=== PATIENT | male | born 1945 | race Caucasian/White ===

== ENCOUNTER 2018-01-02 05:25 | Day surgery (SDC) | payer OTHER ==
[~2018-01-02] VITALS: Ht 182.9 cm; Wt 112.5 kg
--- NOTE | ~2018-01-02 | P ---
[facility] [place] [address] PROCEDURE REPORT Name: TRAVIS LAY JR Room #: DEP [facility]..#: [id number] Admission: 01/02/18 Attend Phys: Jaguar Kee MD Discharge: 01/02/18 Date of : 47 Report #: [id number] THIS REPORT FOR: //name// CC: OZZY Kee DATE OF SERVICE: 01/02/2018 PROCEDURE: Fiberoptic bronchoscopy and endobronchial ultrasound device under general endotracheal anesthesia with sampling of a 9 mm 11R lymph node and a 1 cm left hilar mass. INDICATION: History of lung cancer with PET positive areas in the left and right hilar areas. ASA classification class 3. PROCEDURE NOTATION: After discussing risks, benefits of planned procedure with the patient, desired to proceed. After obtaining informed consent, he was taken to the OR room #2 by the Anesthesia Service and placed on general endotracheal anesthesia with an 8.[address]. Once complete, the procedure proceeded. Please see anesthesia notes regarding general anesthesia. Of note, no paralytics were needed during the procedure. Once complete, the standard white light bronchoscope was advanced through the endotracheal tube to the distal trachea was seen. Trachea appeared normal. The airways were then surveyed. Mainstem, lobar, segmental and subsegmental bronchi were all patent with no significant anatomic variation. There is some narrowing of some of the airways, but no significant disease noted. Some bronchomalacia noted in the right mainstem bronchus. There were some secretions emanating from the lingula of the left upper lobe and this was lavaged. Samples were sent for microbiologic and cytologic tests. White light bronchoscope was then removed and endobronchial ultrasound device was then inserted. The right-sided structures were evaluated first. A small subcarinal lymph node was noted. A 4R lymph node 9 mm noted, but not sampled. 11R lymph node measured 9 mm, and this was sampled 6 times with a 25-gauge core needle. A 6 mm 4L lymph node was also seen, but not sampled. A left hilar mass measuring 1 cm was also noted and was noted to be abnormal on the PET scan. This was sampled 6 times, twice with the previously used 25-gauge core needle and then four times with a 22-gauge standard needle. Rapid on-site pathology was inconclusive. Core samples of [address] [address] PROCEDURE REPORT Name: TRAVIS LAY Room #: [place] [facility] [place] [id number] Admission: 01/02/18 Attend Phys: Jaguar Kee MD Discharge: 01/02/18 Date of : 47 Report #: [id number] tissue were sent in formalin for histopathology. The patient tolerated well. No noted complications. Minimal bleeding. <ELECTRONICALLY SIGNED> By: Jaguar Kee MD 01/02/18 1613 0932 [id number] Jaguar Kee MD /emmy
[~2018-01-02 05:25] MED LIST: ADALAT CC30 MG PO; ALBUTEROL SULFATE INH; ALDACTONE25 MG PO; AMARYL2 MG PO; APAP500 PO; ASPIR 8181 MG PO; ASPIRIN81 M2 PO; BISACODYL SUPP10 MG RECTAL; BREO ELLIPTA 11 EACH INH; BUMETANIDE2 M1 PO; BUMEX2 MG PO; CENTRUM SILVER1 EAC2 PO; CIPRO500 MG PO; CLONIDINE HCL0.1 MG PO; COLACE100 MG PO; FISH OIL PO; FLAGYL500 MG PO; HYDROCHLOROTH12.5 M1 PO; HYDROCODON-ACE1 EAC8 PO; HYDROCODONE-AP1 EAC6 PO; HYDROCODONE-APA1 TA1 PO; IPRAT-ALBUT 0.5-3 ML IH; KLOR-CON 1010 MEQ PO; LACTINEX CHEWA1 EACH PO; LACTINEX PO; LASIX 40 MG TAB40 M2 PO; LEVAQUIN 250 M250 MG PO; LEVAQUIN 500 M500 M2 PO; LISINOPRIL20 MG PO; MAGIC MOUTHWASH PO; METHOTREXATE 22.5 MG IM; METOPROLOL SUCC25 M1 PO; MIRALAX17 GM PO; MUCINEX TA600 MG/TA2 PO; NEURONTIN 300300 M1 PO; PREDNISONE 10 M10 MG; PREDNISONE 10 M10 MG PO; PROMETHAZINE/C118 ML PO; PROTONIX40 M1 PO; RANITIDINE 150150 MG PO; REMICADE 1100 MG/VIA IV; RESTORIL15 MG PO; SENOKOT-S1 TA1 PO; SPIRIVA INH; TESSALON PERLE100 MG PO; TRAMADOL; TRAMADOL 50 MG50 MG PO; VENTOLIN HFA 1818 GM INH; VITAMIN B-12500 MCG IM; VITAMIN B-12500 MCG PO; VITAMIN D1000 UNI2 PO; VITAMIN D3 PO; ZESTORETIC 10-1 EACH PO; ZOCOR40 MG PO
[2018-01-02 07:27] LABS: HEMOGLOBIN 13.1 gm/dL (14.0-18.0); MCHC 33.7 g/dL (28.0-37.0); MCV 101.2 fL (80.0-100.0); RBC 3.86 mil/uL (4.50-6.00); RDW 14.9 % (10.5-14.5); WBC 10.9 thou/uL (4.0-11.0)
[2018-01-02 07:34] LABS: CALCIUM 9.2 mg/dL (8.5-10.1); CREATININE 0.9 mg/dL (0.7-1.3); POTASSIUM 4.2 mmol/L (3.5-5.1)
[2018-01-02 07:39] LABS: PROTIME 9.5 Seconds (9.3-11.4)
[2018-01-02 08:16] VITALS: BP 158/79
== END 2018-01-02 10:40 | disposition home or self-care (01) ==
LOC: TBA 05:25 → OR 05:25
PROVIDERS: Internal Medicine Pulmonary Disease
DX: J98.09 Other diseases of bronchus, not elsewhere classified (principal); R91.8 Other nonspecific abnormal finding of lung field; I10 Essential (primary) hypertension; I25.2 Old myocardial infarction; E78.5 Hyperlipidemia, unspecified; J43.9 Emphysema, unspecified; G47.33 Obstructive sleep apnea (adult) (pediatric); K21.9 Gastro-esophageal reflux disease without esophagitis; M06.9 Rheumatoid arthritis, unspecified; Z98.890 Other specified postprocedural states; Z98.41 Cataract extraction status, right eye; Z98.42 Cataract extraction status, left eye; Z85.118 Personal history of other malignant neoplasm of bronchus and lung; Z87.891 Personal history of nicotine dependence; Z87.19 Personal history of other diseases of the digestive system; Z88.8 Allergy status to other drugs, medicaments and biological substances; Z79.82 Long term (current) use of aspirin; Z79.899 Other long term (current) drug therapy; Z79.891 Long term (current) use of opiate analgesic
CPT/HCPCS: 62110; 62900; 65130; 70005

== ENCOUNTER 2018-07-08 14:27 | Emergency (ER) | payer OTHER ==
[~2018-07-08] VITALS: Ht 182.9 cm; Wt 112.5 kg
--- NOTE | ~2018-07-08 | EKG ---
[address] [place] [address] ELECTROCARDIOGRAM REPORT Name: TRAVIS LAY JR [id number] Admission: 07/08/18 Attend Phys: Discharge: 07/08/18 Date of : 47 Report #: [id number] THIS REPORT FOR: //name// [facility] ED Test Date: 2018-07-08 Test Time: 14:36:17 Pat Name: TRAVIS LAY Department: Room: Gender: M Cost Specialist: KKODJOVI : 1945 Requested By: Jhonatan Urrutia Order Number: [id number] MD: Travis Veronica Measurements Intervals Wren Rate: 98 P: IN: QRS: 23 QRSD: 94 T: 61 QT: 344 QTc: 440 Interpretive Statements Sinus rhythm with first-degree AV block Ventricular premature complex Compared to ECG 03/03/2016 07:20:32 Ventricular premature complex(es) now present Electronically Signed On 07-09-2018 7:36:14 RN TELE by Travis Veronica [email or web address] <ELECTRONICALLY SIGNED> By: Travis Veronica MD, [facility] 07/09/18 0736 1436 1436 Travis Veronica MD, [facility] /EPI
[2018-07-08 15:07] LABS: HEMATOCRIT 35.3 % (42.0-52.0); HEMOGLOBIN 11.6 gm/dL (14.0-18.0); MCH 32.5 pg (26.0-34.0); MCV 98.6 fL (80.0-100.0); PLATELET COUNT 107 thou/uL (150-400); RBC 3.58 mil/uL (4.50-6.00); RDW 15.5 % (10.5-14.5); WBC 2.9 thou/uL (4.0-11.0)
[2018-07-08 15:15] LABS: ANION GAP 6 mmol/L (7-16); BUN 10 mg/dL (7-18); CALCIUM 9.2 mg/dL (8.5-10.1); CHLORIDE 93 mmol/L (98-107); CO2 33 mmol/L (21-32); CREATININE 0.9 mg/dL (0.7-1.3); GLUCOSE 209 mg/dL (74-106); POTASSIUM 4.3 mmol/L (3.5-5.1); SODIUM 132 mmol/L (136-145)
[2018-07-08 15:24] LABS: TROPONIN-I <0.06 ng/mL (<0.06)
[2018-07-08 15:31] LABS: ABSOLUTE NEUTROPHILS 2.6 thou/uL (1.4-8.2); PLATELET ESTIMATE NORMAL
[2018-07-08] MEDS ORDERED: FISH OIL 1,001000 M2 PO (16:06)
[2018-07-08] MEDS ORDERED: ZOCOR20 MG PO (16:09)
[2018-07-08] MEDS ORDERED: DURAGESIC1 EAC4 TD (16:10)
[2018-07-08 18:21] VITALS: BP 188/98
== END 2018-07-08 18:23 | disposition home or self-care (01) ==
LOC: ER 14:27
PROVIDERS: Emergency Medicine
DX: R07.9 Chest pain, unspecified (principal); C34.91 Malignant neoplasm of unspecified part of right bronchus or lung; G56.01 Carpal tunnel syndrome, right upper limb; J44.9 Chronic obstructive pulmonary disease, unspecified; I25.2 Old myocardial infarction; I10 Essential (primary) hypertension; E78.5 Hyperlipidemia, unspecified; G47.30 Sleep apnea, unspecified; M06.9 Rheumatoid arthritis, unspecified; K21.9 Gastro-esophageal reflux disease without esophagitis; J61 Pneumoconiosis due to asbestos and other mineral fibers; Z99.81 Dependence on supplemental oxygen; Z88.8 Allergy status to other drugs, medicaments and biological substances